=== PATIENT | female | born 2005 | race African-American/Black ===

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

== ENCOUNTER 2023-01-13 16:08 | Emergency (ER) | payer OTHER | END 2023-01-13 17:45 | disposition home or self-care (01) | LOC: NAV ERS 16:08 | DX: B34.9 Viral infection, unspecified (principal); J30.9 Allergic rhinitis, unspecified; Z20.822 Contact with and (suspected) exposure to COVID-19 | CPT/HCPCS: 87635; 87804; 99283 ==

== ENCOUNTER 2023-06-06 20:02 | Emergency (ER) | payer OTHER ==
[2023-06-06] MEDS ORDERED: Sodium Chloride 0.9% 1,000 ML ONE (20:53)
[2023-06-06] MEDS ORDERED: Acetaminophen 500 MG TAB ONE (20:53)
[2023-06-06 21:22] LABS: Bilirubin Negative (Negative); Blood, Urine Negative (Negative); CAUTI Indications for Culture Dysuria,urgency,freq; Clarity Clear (Clear); Glucose, Urine (Dipstick) Negative (Negative); Ketone, Urine Negative (Negative); Leukocyte Trace (Negative); Nitrite Negative (Negative); Protein, Urine (Dipstick) Negative (Neg-Trace); Specific Gravity, Urine 1.015 (1.005-1.030); WBC/HPF 0-3 HPF (0-3); pH, Urine 8.5 (5.0-9.0)
[2023-06-06 21:24] LABS: Urine Culture Reflex No No
[2023-06-06 21:30] LABS: ALT (SGPT) 10 U/L (8-55); AST (SGOT) 14 U/L (5-30); Albumin 3.7 g/dL (3.5-5.0); Alkaline Phosphatase 75 U/L (40-100); Anion Gap 13 mmol/L (10-20); BUN (Urea Nitrogen) 5 mg/dL (8.4-21.0); Bilirubin, Total 0.3 mg/dL (0.2-1.2); Calc. Creatinine Clearance 0 mL/min (70-130); Calcium 9.4 mg/dL (7.8-10.44); Carbon Dioxide 20 mmol/L (22-29); Chloride 105 mmol/L (98-107); Estimated GFR 135; Globulin 3.9 g/dL (2.4-3.5); Glucose 88 mg/dL (70-105); Potassium 3.7 mmol/L (3.5-5.1); Protein, Total 7.6 g/dL (6.0-8.3); Sodium 134 mmol/L (136-145)
[2023-06-06 21:44] LABS: White Blood Cell (WBC) Count 8.1 10x3/uL (4.8-10.8)
[2023-06-06 21:45] LABS: #Eosinphils 0.1 thou/uL (0.0-0.7); #Lymphocytes 1.4 thou/uL (1.20-3.40); #Monocytes 0.7 thou/uL (0.11-0.59); #Neutrophils 5.9 thou/uL (1.40-6.50); %Basophils 0.4 % (0.0-1.0); %Eosinophils 0.7 % (0.0-10.0); %Lymphocytes 17.1 % (28.0-48.0); %Monocytes 8.6 % (0.0-4.0); %Neutrophils 73.2 % (31.0-61.0); Hematocrit 32.5 % (36.0-47.0); Hemoglobin 9.8 g/dL (12.0-16.0); Manual Diff?? NO; Mean Corpuscular HGB CONC 30.1 g/dL (32.0-36.0); Mean Corpuscular Hemoglobin 20.4 pg (25.0-35.0); Mean Corpuscular Volume 67.6 fl (78.0-98.0); Mean Platelet Volume 6.7 fL (7.4-10.4); Platelet Count 332 10x3/uL (130-400); RBC Distribution Width 15.5 % (11.5-14.5); Red Blood Cell (RBC) Count 4.81 mill/uL (4.00-5.20)
[2023-06-06 21:46] LABS: Hypochromia MODERATE=16-30 cells (100X) (0-5/hpf); Microcytosis MARKED = >30 cells (100X) (0-5/hpf); Platelet Adequacy Comment Platelets Normal; Target Cells SLIGHT = 2-5 cells (100X) (0-1/hpf)
[2023-06-06] MEDS ORDERED: diphenhydrAMINE 25 MG CAP ONE (21:47)
== END 2023-06-06 22:34 | disposition home or self-care (01) ==
LOC: NAV ERS 20:02
DX: O47.1 False labor at or after 37 completed weeks of gestation (principal); O99.891 Other specified diseases and conditions complicating pregnancy; R10.2 Pelvic and perineal pain; Z3A.31 31 weeks gestation of pregnancy
CPT/HCPCS: 80053; 81001; 85025; 87081; 87430; 87807; 96360; J7050

== ENCOUNTER 2023-06-30 20:30 | Emergency (ER) | payer OTHER ==
[2023-06-30 21:02] LABS: #Basophils 0.1 thou/uL (0.0-0.2); #Eosinphils 0.1 thou/uL (0.0-0.7); #Lymphocytes 1.7 thou/uL (1.20-3.40); #Neutrophils 8.5 thou/uL (1.40-6.50); %Basophils 0.7 % (0.0-1.0); %Lymphocytes 15.1 % (28.0-48.0); %Monocytes 8.6 % (0.0-4.0); %Neutrophils 74.6 % (31.0-61.0); Hematocrit 30.4 % (36.0-47.0); Hemoglobin 9.2 g/dL (12.0-16.0); Mean Corpuscular HGB CONC 30.2 g/dL (32.0-36.0); Mean Corpuscular Hemoglobin 19.6 pg (25.0-35.0); Mean Corpuscular Volume 65.1 fl (78.0-98.0); Mean Platelet Volume 8.1 fL (7.4-10.4); Platelet Count 372 10x3/uL (130-400); RBC Distribution Width 16.2 % (11.5-14.5); Red Blood Cell (RBC) Count 4.67 mill/uL (4.00-5.20); White Blood Cell (WBC) Count 11.4 10x3/uL (4.8-10.8)
[2023-06-30 21:14] LABS: ALT (SGPT) 7 U/L (8-55); AST (SGOT) 12 U/L (5-30); Albumin 3.4 g/dL (3.5-5.0); Alkaline Phosphatase 96 U/L (40-100); Anion Gap 16 mmol/L (10-20); BUN (Urea Nitrogen) 6 mg/dL (8.4-21.0); Bilirubin, Total 0.2 mg/dL (0.2-1.2); Calc. Creatinine Clearance 0 mL/min (70-130); Carbon Dioxide 19 mmol/L (22-29); Chloride 105 mmol/L (98-107); Estimated GFR 135; Globulin 3.6 g/dL (2.4-3.5); Glucose 102 mg/dL (70-105); Potassium 3.5 mmol/L (3.5-5.1); Sodium 136 mmol/L (136-145)
== END 2023-06-30 21:55 | disposition short-term general hospital (02) ==
LOC: NAV ERS 20:30
DX: O75.89 Other specified complications of labor and delivery (principal); Z3A.34 34 weeks gestation of pregnancy
CPT/HCPCS: 80053; 85025; 96360